=== PATIENT | male | born 1985 | race Caucasian/White ===

== ENCOUNTER 2021-01-09 20:41 | Emergency (ER) | payer OTHER, BC, SELFPAY ==
--- NOTE | ~2021-01-09 | CT_ITS ---
EXAMINATION: CT abdomen pelvis wo con DATE: 01/09/2021 22:45 INDICATION: Right flank pain TECHNIQUE: Computed tomography (CT) of the abdomen and pelvis was performed without intravenous contr ast. The dose-length product (DLP) was 315.34 mGy-cm. Automated exposure control and iterative recons truction technique were employed. COMPARISON: None FINDINGS: The lung bases are clear. The heart size is normal. The liver, spleen, pancreas, gallbladde r, and adrenal glands are normal. The kidneys are unremarkable. No stones are identified in the kidne ys, ureters, or bladder. There is no hydronephrosis or hydroureter. The appendix is normal. IMPRESSION: 1. No CT correlate for the patient's symptoms. Reviewed, dictated and finalized at location A.
[2021-01-09 20:44] VITALS: BP 134/75; PULSE 74; RESP 18; TEMP 36.3; O2SAT 100
[2021-01-09 20:59] LABS: Basophils Percent Auto 0.2 % (0.2-1.2); Eosinophils Absolute Auto 0.1 K/mm3 (0-0.3); Eosinophils Percent Auto 0.8 % (0-4.4); Hematocrit 44.2 % (42.0-52.0); Immature Granulocyte Absolute 0.03 K/mm3 (0.00-0.031); Immature Granulocyte Percent A 0.3 % (0-0.5); Lymphocytes Absolute Auto 2.25 K/mm3 (0.9-3.2); Lymphocytes Percent Auto 21.2 % (18.3-44.2); Mean Corpuscular HGB Conc 33.9 g/dl (32-36); Mean Corpuscular Volume 88.4 fl (80-100); Mean Platelet Volume 10.1 fl (7.4-10.4); Monocytes Absolute Auto 0.8 K/mm3 (0.1-0.6); Monocytes Percent Auto 7.6 % (2.6-8.5); Neutrophils Absolute Auto 7.4 K/mm3 (1.3-6.7); Neutrophils Percent Auto 69.9 % (45.5-73.1); Platelet Count Result 220 k/mm3 (150-375); White Blood Count 10.6 K/mm3 (4.5-10.0)
[2021-01-09 21:08] LABS: Anion Gap 10 mmol/L (8-16); Blood Urea Nitrogen 13 mg/dL (9-20); Calcium 9.8 mg/dL (8.4-10.2); Carbon Dioxide 26 mmol/L (22-30); Chloride 101 mmol/L (98-107); Estimated CRCL calculation 98 ml/min; Estimated Glomerular Filt Rate > 60; Glucose 99 mg/dL (65-110); Potassium 3.9 mmol/L (3.4-5.0); Sodium 137 mmol/L (137-145)
[2021-01-09 21:26] LABS: Add Urine Microscopic? NO; Appearance Urine Clear (Clear); Bilirubin Urine Negative (Negative); Blood Urine Negative (Negative); Color Urine Colorless (Yellow); Glucose Urine UA Negative (Negative); Ketones Urine Negative (Negative); Leukocyte Esterase Ur Negative LEU/UL (Negative); Nitrate Urine Negative (Negative); Protein Urine Negative (Negative); Urobilinogen Urine Negative mg/dL (<2.0)
[2021-01-09 21:39] LABS: Specific Grav Ur 1.004 (1.001-1.035)
[2021-01-09 22:19] VITALS: BP 129/79; PULSE 69; RESP 18; O2SAT 99
[2021-01-09] MEDS: ONDANSETRON INJ 4 MG/2 ML VIAL IV PUSH (23:15)
[2021-01-09] MEDS: SODIUM CHLORIDE 0.9% IV 1,000 ML 999 ML IV CONT (23:16)
[2021-01-09] MEDS: MORPHINE SULFATE (*CRX) 4 MG/ML INJ IV PUSH (23:16)
--- NOTE | 2021-01-09 23:35 | ED.GENADULT ---
HPI - General Adult General Chief complaint: Abdominal Pain Stated complaint: right flank pain Time Seen by Provider: 01/09/21 22:19 History of Present Illness HPI narrative: Patient 35-year-old gentleman presents emergency department chief complaint of right flank pain. The patient states that states that several episodes of sharp type pain in his right flank patient states that has now become a mild constant type of ache patient reports he said no fever no vomiting no blood in his urine no dysuria. Patient reports no prior history of kidney stones. Patient reports the pain is currently mild Related Data Allergies Allergy/AdvReac Type Severity Reaction Status Date / Time No Known Allergies Allergy Verified 01/09/21 20:48 Review of Systems Review of Systems: A 10 system review of systems was completed on the patient and is negative except for what is stated in the HPI. Nursing and ancillary documentation was reviewed. Exam Narrative: GENERAL: Well-appearing, well-nourished, and in no acute distress. HEAD: Normocephalic, atraumatic. EYES: PERRLA and EOMI. ENT: Nares clear, no rhinorrhea or epistaxis. Mucous membranes moist. NECK: Supple. CHEST: Clear to auscultation. No respiratory distress. HEART: Regular rate and rhythm. No murmur heard. Normal peripheral pulses. ABDOMEN: Soft, nontender, nondistended, normal active bowel sounds. EXTREMITIES: Normal range of motion. No edema. SKIN: Warm, dry, no rash. NEURO: No focal deficits. Alert and oriented x3. PSYCH: Normal mood and affect. Course Vital Signs Vital signs: Vital Signs Temperature 36.3 C L 01/09/21 20:44 Pulse Rate 74 01/09/21 20:44 Respiratory Rate 18 01/09/21 20:44 Blood Pressure 134/75 01/09/21 20:44 Pulse Oximetry 100 01/09/21 20:44 Temperature 36.3 C L 01/09/21 20:44 Pulse Rate 69 01/09/21 22:19 Respiratory Rate 18 01/09/21 22:19 Blood Pressure 129/79 01/09/21 22:19 Pulse Oximetry 99 01/09/21 22:19 Medical Decision Making Vital Signs Vital Signs: Vital Signs Temperature 36.3 C L 01/09/21 20:44 Pulse Rate 74 01/09/21 20:44 Respiratory Rate 18 08/14/21 20:44 Blood Pressure 134/75 01/09/21 20:44 Pulse Oximetry 100 01/09/21 20:44 Temperature 36.3 C L 01/09/21 20:44 Pulse Rate 69 01/09/21 22:19 Respiratory Rate 18 01/09/21 22:19 Blood Pressure 129/79 01/09/21 22:19 Pulse Oximetry 99 01/09/21 22:19 Lab Data Result diagrams: 01/09/21 20:53 01/09/21 20:53 Labs: Lab Results 01/09/21 01/09/21 01/09/21 Range/Units 20:53 20:53 21:10 WBC 10.6 H (4.5-10.0) K/mm3 RBC 5.00 (4.6-6.20) M/mm3 Hgb 15.0 (14.0-18.0) g/dL Hct 44.2 (42.0-52.0) % MCV 88.4 (80-100) fl MCH 30.0 (26-34) pg MCHC 33.9 (32-36) g/dl RDW 12.0 (11.5-14.5) % Plt Count 220 (150-375) k/mm3 MPV 10.1 (7.4-10.4) fl Immature Gran % (Auto) 0.3 (0-0.5) % Neut % (Auto) 69.9 (45.5-73.1) % Lymph % (Auto) 21.2 (18.3-44.2) % [place] % (Auto) 7.6 (2.6-8.5) % Eos % (Auto) 0.8 (0-4.4) % Baso % (Auto) 0.2 (0.2-1.2) % Lymph # (Auto) 2.25 (0.9-3.2) K/mm3 [place] # (Auto) 0.8 H (0.1-0.6) K/mm3 Eos # (Auto) 0.1 (0-0.3) K/mm3 Baso # (Auto) 0.0 (0.0-0.1) K/mm3 Abs Immat Gran (auto) 0.03 (0.00-0.031) K/mm3 Absolute Neuts (auto) 7.4 H (1.3-6.7) K/mm3 Absolute Nucleated RBC 0.0 (0.0-0.012) K/mm3 Nucleated RBC % 0.0 (0.0-0.2) % Sodium 137 (137-145) mmol/L Potassium 3.9 (3.4-5.0) mmol/L Chloride 101 (98-107) mmol/L Carbon Dioxide 26 (22-30) mmol/L Anion Gap 10 (8-16) mmol/L BUN 13 (9-20) mg/dL Creatinine 1.10 (0.7-1.3) mg/dL Estim Creat Clear Calc 98 ml/min Estimated GFR > 60 (59 - ) Glucose 99 (65-110) mg/dL Calcium 9.8 (8.4-10.2) mg/dL Urine Color Colorless (Yellow) Urine Appearance Clear (Clear) Urine pH 7.0 (5.0-9.
[2021-01-09 23:42] VITALS: BP 126/79; PULSE 71; RESP 18; O2SAT 100
[2021-01-10 00:16] VITALS: BP 127/75; PULSE 63; RESP 16; O2SAT 99
== END 2021-01-10 00:19 | disposition home or self-care (01) ==
PROVIDERS: Emergency Provider Emergency Medicine; PCP Physician Assistant
DX: R10.9 Unspecified abdominal pain (principal)
CPT/HCPCS: 36415; 74176; 80048; 81003; 85025; 96361; 96374; 96375; 99284; J2270; J2405; J7030

== ENCOUNTER 2025-02-14 12:40 | Outpatient (CLI) | payer OTHER, SELFPAY ==
--- NOTE | ~2025-02-14 | XR_ITS ---
XR lumbar spine 2-3V Indication: low back pain x 3 month, no inj, no surgery Comparison: None Findings: The vertebral heights are intact. No fracture or subluxation. The disc heights are intact. Soft tissues unremarkable Impression: No acute abnormality. Reviewed, dictated and finalized at location A. Impression: No acute abnormality.
== END 2025-02-14 12:41 | disposition home or self-care (01) ==
PROVIDERS: PCP Physician Assistant; Visit Provider Physician Assistant
DX: M54.50 Low back pain, unspecified (principal)
CPT/HCPCS: 72100